=== PATIENT | female | born 1975 | race Caucasian/White ===

== ENCOUNTER 2020-11-23 15:23 | Emergency (ER) | payer BC ==
[~2020-11-23] VITALS: Ht 172.7 cm; Wt 61.2 kg
[2020-11-23 15:33] VITALS: BP_SYST 136
[2020-11-23] MEDS ORDERED: KETOROLAC TROMETHAMINE 60 MG/2 ML VIAL IM ONE (16:00)
[2020-11-23] MEDS ORDERED: CYCLOBENZAPRINE HCL 10 MG TABLET (FLEXERIL) PO ONE (16:00)
[2020-11-23] MEDS ORDERED: KETO10TA2 PO ×2 (16:10→16:15)
[2020-11-23] MEDS ORDERED: CYCL-10 PO ×2 (16:10→16:15)
[2020-11-23 16:33] VITALS: BP_SYST 136
== END 2020-11-23 16:35 | disposition home or self-care (01) ==
LOC: SED 15:23
DX: S76.312A Strain of muscle, fascia and tendon of the posterior muscle group at thigh level, left thigh, initial encounter (principal); X58.XXXA Exposure to other specified factors, initial encounter; Y93.89 Activity, other specified; Y92.89 Other specified places as the place of occurrence of the external cause; Y99.8 Other external cause status
CPT/HCPCS: 81025; 96372; 99283; J1885